=== PATIENT | male | born 1990 | race Caucasian/White ===

== ENCOUNTER 2017-06-08 17:10 | Emergency (ER) | payer OTHER ==
[~2017-06-08] VITALS: Ht 190.5 cm; Wt 81.6 kg
[2017-06-08 17:16] VITALS: BP 127/78
[2017-06-08] MEDS ORDERED: Bacitracin Oint UD TOPIC ONE ×2 (17:46→18:00)
--- NOTE | 2017-06-08 17:46 | Emergency Room Report ---
History of Present Illness General Chief Complaint: Laceration Source: Patient Present Illness HPI 26 YO Male presents to the ED c/o laceration to left fifth digit, from vegetable adeola. Patient is right-hand dominant. Pain is 2/10 in severity. Taking blood thinning medications, tetanus is up to date. Pt applied Blood stopping powder WEIGHER AND GRADER. Denies numbness tingling or loss of sensation or gross motor movements of the extremities, incontinence of bowel or bladder. Denies CP , Palpitations, LOC, AMS, dizziness, Changes in Vision, Sensation, paresthesias , or a sudden severe headache. Allergies: Coded Allergies: No Known Allergies (Unverified , 06/08/17) Patient History Past Medical History: see triage record Past Surgical History: none Pertinent Family History: none Immunizations: UTD Reviewed Nursing Documentation: PMH: Agreed, PSxH: Agreed Nursing Documentation-PMH Past Medical History: No Stated History Review of Systems All Other Systems: negative except mentioned in HPI Physical Exam Vital Signs Date Time Temp Pulse Resp B/P (MAP) Pulse Ox O2 Delivery O2 Flow Rate FiO2 06/08/17 17:12 98.1 89 18 127/78 98 Room Air Sp02 EP Interpretation: reviewed, normal General Appearance: no apparent distress, alert, GCS 15, non-toxic Head: normocephalic, atraumatic Eyes: bilateral eye normal inspection, bilateral eye PERRL ENT: hearing grossly normal, normal voice Neck: full range of motion Respiratory: lungs clear, speaking full sentences Cardiovascular #1: regular rate, rhythm, normal capillary refill Musculoskeletal: back normal, gait/station normal, normal range of motion Neurologic: alert, oriented x3, responsive, motor strength/tone normal, sensory intact, speech normal Skin: normal color, no rash, warm/dry, well hydrated, laceration - Fingertip avulsion with partial nail involvement laceration approx 1 cm in length Medical Decision Making PA Attestation Dr. Arceo is my supervising Physician whom patient management has been discussed with. Diagnostic Impression: Primary Impression: Laceration ER Course 26 YO Male presents to the ED c/o laceration to left fifth digit, from vegetable adeola. Patient is right-hand dominant. Pain is 2/10 in severity. Taking blood thinning medications, tetanus is up to date. Denies numbness tingling or loss of sensation or gross motor movements of the extremities, incontinence of bowel or bladder. Denies CP, Palpitations, LOC, AMS, dizziness, Changes in Vision, Sensation, paresthesias, or a sudden severe headache. Ddx considered but are not limited to laceration, tendon injury, cellulitis, amputation just to name a few. Vital signs: are WNL, pt. is afebrile H&PE are most consistent with: Fingertip avulsion with partial nail involvement laceration approx 1 cm in length ORDERS: none required at this time, the diagnosis is clinical ED INTERVENTIONS: - The wound was copiously irrigated with normal saline, and explored for foreign body for which no obvious FB was found other than scant residual blood clotting powder. -Bacitracin and sterile dressing is applied. Discussed with patient: That we make every effort to approximate the laceration as best as we can so that scarring will be as cosmetically pleasing as possible with our limited cosmetic skill set in the Emergency dept. Regardless of our best efforts there will be scarring after laceration repair. The extent of scarring is unknown at this time. DISCHARGE: At this time pt. is stable for d/c to home. Will provide printed patient care instructions, and any necessary prescriptions. Care plan and follow up instructions have been discussed with the patient prior to discharge. Last Vital Signs Date Time Temp Pulse Resp B/P (MAP) Pulse Ox O2 Delivery O2 Flow Rate FiO2 06/08/17 17:16 98.1 74 18 127/78 98 Room Air Disposition: HOME, SELF-CARE Condition: Stable Scripts Cephalexin* (KEFLEX*) 500 Mg Capsule 500 MG ORAL EVERY 12 HOURS for 7 Days, #14 CAP 0 Refills Prov: Brittny Nicole 06/08/17 Bacitracin/Polymyxin B Sulfate (BACITRACIN-POLYMYXIN OINTMENT) 28.35 Gm Oint...g. 1 APPLIC TP BID, #28.3 GM Prov: Brittny Nicole 06/08/17 Departure Forms: Return to Work Return to Work Date: Jun 10, 2017 Work Restrictions: No Heavy Lifting Other Restrictions: limited use of the left hand, keep clean and dry. Return to Full Activity: Jun 14, 2017 Patient Instructions: Nonsutured Laceration Care Additional Instructions: Take medications as directed. Follow up with a Primary Care Provider in 3-5 days, even if your symptoms have resolved. --Please review list of primary care clinics, if you do not already have a primary care provider Return sooner to ED if new symptoms occur, or current symptoms become worse. - Please note that this Emergency Department Report was dictated using [employer] internal medicine technology software, occasionally this can lead to erroneous entry secondary to interpretation by the dictation equipment. Brittny Nicole Jun 08, 2017 17:46
[2017-06-08] MEDS ORDERED: BACITRACIN-P28.35 GM TP (17:50)
[2017-06-08] MEDS ORDERED: CEPHALEXIN500 MG ORAL (17:50)
[2017-06-08 17:59] VITALS: BP 127/78
== END 2017-06-08 17:59 | disposition home or self-care (01) ==
LOC: EMR 17:30
DX: S61.317A Laceration without foreign body of left little finger with damage to nail, initial encounter (principal); W26.0XXA Contact with knife, initial encounter; Y93.G1 Activity, food preparation and clean up; Y92.59 Other trade areas as the place of occurrence of the external cause; Y99.0 Civilian activity done for income or pay
CPT/HCPCS: 99283